=== PATIENT | female | born 1945 | race Caucasian/White ===

== ENCOUNTER → 2018-10-07 08:25 | Outpatient (CLI) | payer MEDICARE, OTHER, SELFPAY ==
[2018-10-07 10:09] LABS: Alanine Aminotransferase 25 IU/L (9-52); Albumin 4.1 g/dL (3.5-5.0); Albumin Globulin Ratio 1.3 (1.0-2.8); Alkaline Phosphatase 58 U/L (38-126); Aspartate Aminotransferase 29 IU/L (14-36); BUN Creatinine Ratio 21.1 (6-22); Bilirubin Total 0.5 mg/dL (0.2-1.3); Blood Urea Nitrogen 19 mg/dL (7-17); Carbon Dioxide 29 mmol/L (22-32); Chloride 103 mmol/L (98-107); Estimated Glomerular Filt Rate > 60.0 mL/min (>60); Globulin 3.2 g/dL (1.7-4.1); Glucose 93 mg/dL (80-110); HEMOLYSIS < 15 (0-50); Potassium 4.3 mmol/L (3.4-5.1); Sodium 140 mmol/L (137-145); Total Protein 7.3 g/dL (6.3-8.2)
[2018-10-07 10:45] LABS: T4 Total Thyroxine 8.93 ug/dL (5.5-11.0)
[2018-10-07 10:59] LABS: Thyroid Stimulating Hormone 0.72 uIU/mL (0.47-4.68)
== END ==
DX: Z13.228 Encounter for screening for other metabolic disorders (principal); E03.9 Hypothyroidism, unspecified
CPT/HCPCS: 36415; 80053; 84436; 84443

== ENCOUNTER → 2018-10-22 14:21 | Outpatient (CLI) | payer MEDICARE, OTHER, SELFPAY ==
--- NOTE | 2018-10-22 | DI.RAD.S_ITS ---
This blank DEXA report has been sent in error by the PACS system. The correct and complete report will be forthcoming in 1-2 days. Thank you for your patience and understanding. Dictated by: Barry Mcdowell M.D. on 10/22/2018 at 15:54 Approved by: Barry Mcdowell M.D. on 10/22/2018 at 15:54
--- NOTE | 2018-10-22 | DI.MG.S_ITS ---
BILATERAL DIGITAL SCREENING MAMMOGRAM 3D/2D WITH CAD POST LUMPECTOMY: 10/22/2018 CLINICAL: Routine screening. History of breast cancer. Comparison is made to exams dated: 09/22/2017 mammogram, 07/22/2016 mammogram, 06/30/2015 mammogram, 06/29/2014 mammogram, and 06/15/2013 mammogram - [facility]. There are scattered fibroglandular elements in both breasts. Current study was also evaluated with a Computer Aided Detection (CAD) system. There are benign post operative findings in the right breast. There also are benign vascular calcifications in both breasts. No significant masses, calcifications, or other findings are seen in either breast. There has been no significant interval change. IMPRESSION: There is no mammographic evidence of malignancy. A 1 year screening mammogram is recommended. This exam was interpreted at Station ID: [id number]. NOTE: For mammograms, a report in lay terms will be sent to the patient. Approximately 15% of breast malignancies will not be visualized mammographically. In the management of a palpable breast mass, a negative mammogram must not discourage biopsy of a clinically suspicious lesion. Electronically Signed By: Andrew yoo/sharmin:10/23/2018 13:28:34 letter sent: Normal Exam ACR BI-RADS Category 2: Benign Finding(s) 3342F
== END ==
DX: Z12.31 Encounter for screening mammogram for malignant neoplasm of breast (principal); Z85.3 Personal history of malignant neoplasm of breast; Z13.820 Encounter for screening for osteoporosis; Z78.0 Asymptomatic menopausal state; E07.9 Disorder of thyroid, unspecified
CPT/HCPCS: 77063; 77067; 77080

== ENCOUNTER → 2019-10-06 08:39 | Outpatient (CLI) | payer MEDICARE, OTHER, SELFPAY ==
[2019-10-06 09:45] LABS: Alanine Aminotransferase 24 IU/L (<35); Albumin 4.4 g/dL (3.5-5.0); Albumin Globulin Ratio 1.3 (1.0-2.8); Alkaline Phosphatase 64 U/L (38-126); Aspartate Aminotransferase 35 IU/L (14-36); BUN Creatinine Ratio 23.8 (6-22); Bilirubin Total 0.3 mg/dL (0.2-1.3); Blood Urea Nitrogen 19 mg/dL (7-17); Calcium 10.3 mg/dL (8.4-10.2); Carbon Dioxide 28 mmol/L (22-32); Chloride 104 mmol/L (98-107); Estimated Glomerular Filt Rate > 60.0 mL/min (>60); Globulin 3.4 g/dL (1.7-4.1); Glucose 103 mg/dL (80-110); HEMOLYSIS < 15 (0-50); Sodium 141 mmol/L (137-145); Total Protein 7.8 g/dL (6.3-8.2)
[2019-10-06 10:27] LABS: Free T4, Direct Thyroxine 1.19 ng/dL (0.78-2.19)
[2019-10-06 10:41] LABS: Thyroid Stimulating Hormone 1.24 uIU/mL (0.47-4.68)
== END ==
DX: Z13.228 Encounter for screening for other metabolic disorders (principal); E03.9 Hypothyroidism, unspecified
CPT/HCPCS: 36415; 80053; 84439; 84443

== ENCOUNTER → 2019-10-25 08:49 | Outpatient (CLI) | payer MEDICARE, OTHER, SELFPAY ==
[2019-10-25 09:46] LABS: Alanine Aminotransferase 12 IU/L (<35); Albumin 4.2 g/dL (3.5-5.0); Albumin Globulin Ratio 1.2 (1.0-2.8); Alkaline Phosphatase 59 U/L (38-126); Aspartate Aminotransferase 21 IU/L (14-36); BUN Creatinine Ratio 15.7 (6-22); Bilirubin Total 0.5 mg/dL (0.2-1.3); Blood Urea Nitrogen 11 mg/dL (7-17); Calcium 9.5 mg/dL (8.4-10.2); Carbon Dioxide 27 mmol/L (22-32); Chloride 103 mmol/L (98-107); Estimated Glomerular Filt Rate > 60.0 mL/min (>60); Globulin 3.4 g/dL (1.7-4.1); Glucose 126 mg/dL (80-110); HEMOLYSIS < 15 (0-50); Sodium 140 mmol/L (137-145); Total Protein 7.6 g/dL (6.3-8.2)
== END ==
DX: R94.4 Abnormal results of kidney function studies (principal)
CPT/HCPCS: 36415; 80053

== ENCOUNTER → 2019-10-25 09:20 | Outpatient (CLI) | payer MEDICARE, OTHER, SELFPAY ==
--- NOTE | 2019-10-25 | DI.MG.S_ITS ---
BILATERAL DIGITAL SCREENING MAMMOGRAM 3D/2D WITH CAD: 10/25/2019 CLINICAL: Routine screening. Personal history of right breast cancer. Family history of breast cancer. Comparison is made to exams dated: 10/22/2018 mammogram - [facility], 09/22/2017 mammogram, and 07/22/2016 mammogram - [facility]. There are scattered fibroglandular elements in both breasts. Current study was also evaluated with a Computer Aided Detection (CAD) system. There are benign vascular calcifications in both breasts. There also are benign post operative findings in the right breast. No significant masses, calcifications, or other findings are seen in either breast. There has been no significant interval change. IMPRESSION: There is no mammographic evidence of malignancy. A 1 year screening mammogram is recommended. This exam was interpreted at Station ID: [id number]. NOTE: For mammograms, a report in lay terms will be sent to the patient. Approximately 15% of breast malignancies will not be visualized mammographically. In the management of a palpable breast mass, a negative mammogram must not discourage biopsy of a clinically suspicious lesion. Electronically Signed By: Mandy zavala/sharmin:10/26/2019 09:24:52 letter sent: Normal Exam ACR BI-RADS Category 2: Benign Finding(s) 3342F
== END ==
DX: Z12.31 Encounter for screening mammogram for malignant neoplasm of breast (principal); Z85.3 Personal history of malignant neoplasm of breast; Z80.3 Family history of malignant neoplasm of breast
CPT/HCPCS: 77063; 77067

== ENCOUNTER → 2020-09-28 09:01 | Outpatient (CLI) | payer MEDICARE, OTHER, SELFPAY ==
[2020-09-28 10:59] LABS: Alanine Aminotransferase 19 IU/L (<35); Albumin 4.3 g/dL (3.5-5.0); Albumin Globulin Ratio 1.3 (1.0-2.8); Alkaline Phosphatase 65 U/L (38-126); Aspartate Aminotransferase 30 IU/L (14-36); Bilirubin Total 0.7 mg/dL (0.2-1.3); Blood Urea Nitrogen 18 mg/dL (7-17); Calcium 9.8 mg/dL (8.4-10.2); Carbon Dioxide 33 mmol/L (22-32); Chloride 103 mmol/L (98-107); Cholesterol 244 mg/dL (140-199); Estimated Glomerular Filt Rate > 60.0 mL/min (>60); Globulin 3.2 g/dL (1.7-4.1); Glucose 99 mg/dL (80-110); HDL Cholesterol 71 mg/dL (40-60); HEMOLYSIS < 15 (0-50); LDL Cholesterol Calculated 157 mg/dL (<100); Sodium 136 mmol/L (137-145); Total Protein 7.5 g/dL (6.3-8.2); Triglycerides 80 mg/dL (35-150)
[2020-09-28 11:49] LABS: TSH w/ Reflex to FT4 0.78 uIU/mL (0.47-4.68)
== END ==
PROVIDERS: PCP Internal Medicine; Referring Provider Internal Medicine; Visit Provider Internal Medicine
DX: E03.9 Hypothyroidism, unspecified (principal); E78.5 Hyperlipidemia, unspecified; M19.042 Primary osteoarthritis, left hand
CPT/HCPCS: 36415; 80053; 80061; 84443

== ENCOUNTER → 2020-10-26 10:16 | Outpatient (CLI) | payer MEDICARE, OTHER, SELFPAY ==
--- NOTE | 2020-10-26 | DI.MG.S_ITS ---
BILATERAL DIGITAL SCREENING MAMMOGRAM 3D/2D WITH CAD POST LUMPECTOMY: 10/26/2020 CLINICAL: Routine screening. Personal history of right breast cancer. Family history of breast cancer. Comparison is made to exams dated: 10/25/2019 mammogram and 10/22/2018 mammogram - [facility]. There are scattered fibroglandular elements in both breasts. Current study was also evaluated with a Computer Aided Detection (CAD) system. There are benign vascular calcifications in both breasts. There also are benign post operative findings in the right breast. No significant masses, calcifications, or other findings are seen in either breast. There has been no significant interval change. IMPRESSION: BENIGN There is no mammographic evidence of malignancy. A 1 year screening mammogram is recommended. This exam was interpreted at Station ID: [id number]. NOTE: For mammograms, a report in lay terms will be sent to the patient. Approximately 15% of breast malignancies will not be visualized mammographically. In the management of a palpable breast mass, a negative mammogram must not discourage biopsy of a clinically suspicious lesion. Electronically Signed By: Andrew yoo/sharmin:10/26/2020 13:40:41 letter sent: Normal Exam ACR BI-RADS Category 2: Benign Finding(s) 3342F
== END ==
PROVIDERS: PCP Internal Medicine; Referring Provider Internal Medicine; Visit Provider Internal Medicine
DX: Z12.31 Encounter for screening mammogram for malignant neoplasm of breast (principal); Z80.3 Family history of malignant neoplasm of breast; Z85.3 Personal history of malignant neoplasm of breast
CPT/HCPCS: 77063; 77067

== ENCOUNTER → 2021-11-10 11:25 | Outpatient (CLI) | payer MEDICARE, OTHER, SELFPAY ==
--- NOTE | 2021-11-10 | DI.MG.S_ITS ---
BILATERAL DIGITAL SCREENING MAMMOGRAM 3D/2D WITH CAD: 11/10/2021 CLINICAL: Routine screening. Personal history of right breast cancer. Comparison is made to exams dated: 10/26/2020 mammogram, 10/25/2019 mammogram, and 10/22/2018 mammogram - [facility]. There are scattered fibroglandular elements in both breasts. Current study was also evaluated with a Computer Aided Detection (CAD) system. There are benign vascular calcifications in both breasts. There also are benign post operative findings in the right breast. No significant masses, calcifications, or other findings are seen in either breast. There has been no significant interval change. IMPRESSION: BENIGN There is no mammographic evidence of malignancy. A 1 year screening mammogram is recommended. This exam was interpreted at Station ID: [id number]. NOTE: For mammograms, a report in lay terms will be sent to the patient. Approximately 15% of breast malignancies will not be visualized mammographically. In the management of a palpable breast mass, a negative mammogram must not discourage biopsy of a clinically suspicious lesion. Electronically Signed By: Mandy zavala/sharmin:11/12/2021 09:55:47 letter sent: Normal Exam ACR BI-RADS Category 2: Benign Finding(s) 3342F
== END ==
PROVIDERS: PCP Internal Medicine; Referring Provider Internal Medicine; Visit Provider Internal Medicine
DX: Z12.31 Encounter for screening mammogram for malignant neoplasm of breast (principal); Z85.3 Personal history of malignant neoplasm of breast
CPT/HCPCS: 77063; 77067

== ENCOUNTER → 2021-11-16 10:54 | Outpatient (CLI) | payer MEDICARE, OTHER, SELFPAY ==
--- NOTE | 2021-11-16 | DI.RAD.S_ITS ---
PROCEDURE: XR DEXA AXIAL SKELETON INDICATIONS: Asymptomatic menopausal state COMPARISON: None. FINDINGS: This blank DEXA report has been sent in error by the PACS system. The correct and complete report will be forthcoming in 1-2 days. Thank you for your patience and understanding. Dictated by: Denice Tam MD, PhD on 11/17/2021 at 7:42 Approved by: Denice Tam MD, PhD on 11/17/2021 at 7:42
== END ==
PROVIDERS: PCP Internal Medicine; Referring Provider Internal Medicine; Visit Provider Internal Medicine
DX: Z78.0 Asymptomatic menopausal state (principal); Z13.820 Encounter for screening for osteoporosis; E07.9 Disorder of thyroid, unspecified; Z85.3 Personal history of malignant neoplasm of breast
CPT/HCPCS: 77080

== ENCOUNTER 2023-02-24 07:41 | Day surgery (SDC) | payer MEDICARE, OTHER, SELFPAY ==
[2023-02-24 08:23] VITALS: BP 153/83; PULSE 80; RESP 17; TEMP 36.6; O2SAT 98; BMI 22.6
[2023-02-24] MEDS: LACTATED RINGERS 1,000 ML 42 ML IV (08:40)
--- NOTE | 2023-02-24 09:17 | P.HP_ITS ---
History of Present Illness History of Present Illness Date Patient Seen: 02/24/23 Time Patient Seen: 09:17 Chief complaint: Screening Colonoscopy Narrative: Here for colon cancer screening [facility] Medical History Breast cancer Diverticulosis Hyperlipemia Surgical History H/O cataract removal with insertion of prosthetic lens History of vaginal hysterectomy S/P lumpectomy, right breast Social History household members: spouse Smoking Status: Never smoker alcohol intake: current Meds Home Medications and Allergies Home Medications Medication Instructions Recorded Confirmed Type aspirin 81 mg chewable tablet 81 mg PO DAILY 02/21/23 02/24/23 History (Aspirin Childrens) atorvastatin 10 mg tablet 10 mg PO DAILY 02/21/23 02/24/23 History levothyroxine 50 mcg tablet 50 mcg PO DAILY 02/21/23 02/24/23 History (Synthroid) calcium carb-Ca gluc 500 mg tab PO 02/24/23 History calcium-magnesium ox-Mg gluc 250 mg tablet (Calcium Magnesium) coenzyme Q10 100 mg capsule (Co 100 mg PO DAILY 02/24/23 02/24/23 History Q-10) omega-3 fatty acids 1,000 mg PO DAILY 02/24/23 02/24/23 History Allergies Allergy/AdvReac Type Severity Reaction Status Date / Time No Known Drug Allergies Allergy Verified 02/24/23 08:19 Review of Systems Review of Systems ROS: Yes All systems reviewed with the patient and are negative except as otherwise documented Exam Vital Signs (past 8 hours): - 02/24/23 08:23 Temperature 98 F Pulse Rate 80 Respiratory Rate 17 Blood Pressure 153/83 H Pulse Oximetry 98 Oxygen Delivery Method Room Air Oxygen Delivery Method Room Air Const General: cooperative HENMT Head: normal to inspection Eyes General: appearance normal, both eyes and all related structures Neck Neck: normal visual inspection Chest Chest: normal inspection of the chest Resp Effort & Inspection: normal respiratory effort Cardio Rate: regular rate GI Inspection: normal to inspection Skin General: no rashes or lesions noted Neuro General: patient alert and patient awake Extrem General: normal to inspection and no pedal edema Psych Appearance: grossly normal Assessment & Plan Assessment & Plan narrative: 77-year-old female here for colon cancer screening. Colonoscopy is pursued today.
--- NOTE | 2023-02-24 10:17 | PM.OP.COLON ---
Operative Date/Time/Diagnoses Date of procedure: 02/24/23 Time of procedure: 10:17 Pre-op diagnosis: Colon cancer screening Post-op diagnosis: same Procedure & Clinicians Study performed: Colonoscopy Same procedure as scheduled: Yes Indications: Colon cancer screening Surgeon: Lizandro Mascorro Procedure Notes SCOAP/Timeout: Done Procedure in detail: After the risks and benefits were explained, written and verbal informed consent was obtained. The patient was brought into the procedure room and placed into the left lateral decubitus position. Please see anesthesia notes for sedation details. Digital rectal examination was accomplished. The scope was introduced into the patient and advanced under direct visualization to the cecum as identified by the appendiceal orifice and ileocecal valve. The scope was slowly withdrawn to carefully examine the mucosa for any defects or lesions. Comprehensive imaging was accomplished throughout the rectum including the dentate line. The colon was decompressed, the scope was then removed from the patient who tolerated the procedure well. Pediatric colonoscope Bowel prep adequate Scope withdrawal time: 8 minutes Sedation minutes: 15 Impression: The patient had grade 3 nonthrombosed nonbleeding hemorrhoids. There was extensive diverticulosis in the sigmoid colon. Otherwise no significant pathology appreciated throughout. Endoscopic diagnosis 1. Diverticulosis 2. Grade 3 hemorrhoids Post-procedure Plan for aftercare: Follow-up in primary care as before. Disposition: PACU
[2023-02-24 10:18] VITALS: BP 110/73; PULSE 72; RESP 18; TEMP 36; O2SAT 96
[2023-02-24 10:23] VITALS: BP 114/62; PULSE 69; RESP 12; O2SAT 97
[2023-02-24 10:28] VITALS: BP 136/68; PULSE 65; RESP 13; O2SAT 97
[2023-02-24 10:34] VITALS: BP 140/65; PULSE 62; RESP 10; TEMP 36.2; O2SAT 98
[2023-02-24 10:40] VITALS: BP 149/67; PULSE 61; RESP 12; TEMP 36.2; O2SAT 98
--- NOTE | 2023-02-24 10:52 | SUR.PHASEII ---
went over discharge instructions with pt and pt states she understands discharge instructions and that she is ready to go home. Pt currently in the bathroom changing.
== END 2023-02-24 10:58 | disposition home or self-care (01) ==
PROVIDERS: PCP Internal Medicine; Referring Provider Internal Medicine Gastroenterology; Visit Provider Internal Medicine Gastroenterology
PROC: 0DJD8ZZ Inspection of Lower Intestinal Tract, Via Natural or Artificial Opening Endoscopic (ICD-10-PCS; CPT 45378; principal; 2023-02-24 09:00)
DX: Z12.11 Encounter for screening for malignant neoplasm of colon (principal); K57.30 Diverticulosis of large intestine without perforation or abscess without bleeding; K64.2 Third degree hemorrhoids
CPT/HCPCS: G0121; J2704

== ENCOUNTER → 2023-10-29 08:53 | Outpatient (CLI) | payer OTHER, SELFPAY ==
--- NOTE | 2023-10-29 08:58 | DI.MRI.S_ITS ---
PROCEDURE: MR CERVICAL SPINE WO CON INDICATIONS: Radiculopathy, cervical region TECHNIQUE: Noncontrast sagittal T1 spin echo and T2 fast spin echo, sagittal STIR, foraminal oblique sagittal T2 fast spin echo, and axial gradient echo or T2 fast spin echo through the cervical spine. COMPARISON: None. FINDINGS: Image quality: Excellent. Alignment and Curvature: Straightening of normal cervical lordosis. Mild anterolisthesis of C4 on C5 and C7 on T1. Bone Marrow: Mild multilevel degenerative endplate changes are noted, most pronounced C6-C7. Marrow demonstrates normal overall signal. Spinal Cord: Visualized spinal cord has normal size and signal. No cerebellar tonsillar herniation. Paraspinous Soft Tissues: No paravertebral masses. Prevertebral soft tissues are normal in thickness. C2-C3: Disc desiccation and minimal posterior disc osteophyte complex. No central canal stenosis. Facet and uncovertebral arthropathy. Mild right and no left neural foraminal stenosis. C3-C4: Disc desiccation height loss. Mild posterior disc osteophyte complex. Mild central canal stenosis. Facet and uncovertebral arthropathy. Mild bilateral neural foraminal stenosis. C4-C5: Disc desiccation height loss. Mild central canal stenosis. Facet and uncovertebral arthropathy. Mild bilateral neural foraminal stenosis. C5-C6: Disc desiccation height loss. Minimal posterior disc osteophyte complex. Mild central canal stenosis. Facet and uncovertebral arthropathy. Severe bilateral neural foraminal stenosis. C6-C7: Disc desiccation height loss. Posterior disc osteophyte complex. Mild central canal stenosis. Facet and uncovertebral arthropathy. Mild bilateral neural foraminal stenosis. C7-T1: Disc desiccation. No central canal or neural foraminal stenosis. IMPRESSION: 1. No acute traumatic injury is seen within the cervical spine. 2. There are multilevel degenerative changes of the cervical spine as described above. There is mild multilevel central canal stenosis. 3. Severe bilateral neural foraminal stenosis at C5-C6. Dictated by: Rich Levy M.D. on 10/29/2023 at 11:37 Approved by: Rich Levy M.D. on 10/29/2023 at 11:41
== END ==
PROVIDERS: PCP Internal Medicine; Referring Provider Physical Medicine & Rehabilitation Pain Medicine; Visit Provider Physical Medicine & Rehabilitation Pain Medicine
DX: M47.22 Other spondylosis with radiculopathy, cervical region (principal); M48.02 Spinal stenosis, cervical region
CPT/HCPCS: 72141

== ENCOUNTER → 2025-01-03 11:38 | Outpatient (CLI) | payer MEDICARE, OTHER, SELFPAY ==
--- NOTE | 2025-01-03 11:40 | DI.MG.S_ITS ---
MM screening mammo BI: 01/03/2025. BI-RADS: 2 CLINICAL: 79-year old female for bilateral screening mammogram. No Tyrer-Cuzick risk score calculation due to the patient's personal history of breast cancer. Patient reports a history of right breast carcinoma diagnosed at age 66. Status-post right lumpectomy with radiation therapy and hormonal therapy. No first-degree family history of breast cancer. The patient had a prior right breast biopsy. PRIOR EXAMS 11/10/2021, 10/26/2020, 10/25/2019, 10/22/2018, 09/22/2017, 07/29/2016, 07/22/2016, 06/30/2015. MAMMOGRAPHY TECHNIQUE: 2D and 3D (tomosynthesis) digital mammographic views obtained, with additional images as needed for full coverage. Current study was also evaluated with a Computer Aided Detection (CAD) system. DENSITY B. There are scattered areas of fibroglandular density. MAMMOGRAPHY FINDINGS Right: Benign-appearing post-surgical changes noted on the right. Typically-benign vascular calcifications also noted. No significant change from comparison. Left: Typically-benign vascular calcifications noted. No significant change from comparison. IMPRESSION: * No evidence of malignancy with benign findings. RECOMMENDATIONS Bilateral * Annual screening mammography. OVERALL ASSESSMENT CATEGORY BI-RADS-2: Benign. [employer] recommends annual screening mammography beginning at age 40 for women with average risk of breast cancer. ELECTRONICALLY SIGNED: Madeline Rouse M.D. on 01/03/2025 at 06:20:15 PM PT Interpreting Station ID: [id number]
== END ==
PROVIDERS: PCP Internal Medicine; Referring Provider Internal Medicine; Visit Provider Internal Medicine
DX: Z12.31 Encounter for screening mammogram for malignant neoplasm of breast (principal); Z85.3 Personal history of malignant neoplasm of breast
CPT/HCPCS: 77063; 77067